=== PATIENT | female | born 1995 | race Two or more races ===

== ENCOUNTER 2017-01-19 22:33 | Emergency (ER) | payer SELFPAY ==
[~2017-01-19] VITALS: Ht 167.6 cm; Wt 54.4 kg
[2017-01-19 23:15] LABS: BILIRUBIN,URINE NEGATIVE (NEG); GLUCOSE,URINE NEGATIVE (NEG); NITRITE,URINE NEGATIVE (NEG); PH,URINE 5.5; PROTEIN,URINE NEGATIVE (NEG-TRACE); UROBILINOGEN,URINE 0.2 mg/dL (0.2 mg/dL)
--- NOTE | 2017-01-19 23:15 | PHYS DOC ---
Past Medical History Past Medical History: Other Additional Past Medical Histor: Gastritis Past Surgical History: No Surgical History Alcohol Use: None Drug Use: None Adult General Chief Complaint Chief Complaint: GI PROBLEM HPI HPI Patient is a 21 year old female who presents with mild epigastric abdominal pain that began today at 5 PM. Patient is also complaining of nausea with no vomiting. Denies any fever. Denies any chance she is . Denies any unusual vaginal discharge. Denies any concerns for STDs. Review of Systems Review of Systems Constitutional: Denies fever or chills [] Eyes: Denies change in visual acuity, redness, or eye pain [] HENT: Denies nasal congestion or sore throat [] Respiratory: Denies cough or shortness of breath [] Cardiovascular: No additional information not addressed in HPI [] GI: epigastric abdominal pain, nausea, denies vomiting, bloody stools or diarrhea [] : Denies dysuria or hematuria [] Musculoskeletal: Denies back pain or joint pain [] Integument: Denies rash or skin lesions [] Neurologic: Denies headache, focal weakness or sensory changes [] Endocrine: Denies polyuria or polydipsia [] Current Medications Current Medications Current Medications Medications (Trade) Dose Ordered Sig/Linda Start Time Stop Time Status Last Admin Dose Admin Famotidine (Pepcid) 20 mg 1X ONCE 01/19/17 23:30 01/19/17 23:31 DC 01/19/17 23:43 20 MG Multi-Ingredient Mouthwash/Gargle (Gi Cocktail Single Dose) 15 ml 1X ONCE 01/19/17 23:30 01/19/17 23:31 DC 01/19/17 23:44 15 ML Ondansetron HCl (Zofran Odt) 4 mg 1X ONCE 01/19/17 23:30 01/19/17 23:31 DC 01/19/17 23:44 4 MG Allergies Allergies Allergies Coded Allergies Type Severity Reaction Last Updated Verified No Known Drug Allergies 01/19/17 No Physical Exam Physical Exam Constitutional: Well developed, well nourished, no acute distress, non-toxic appearance. [] HENT: Normocephalic, atraumatic, bilateral external ears normal, oropharynx moist, no oral exudates, nose normal. [] Eyes: PERRLA, EOMI, conjunctiva normal, no discharge. [] Neck: Normal range of motion, no tenderness, supple, no stridor. [] Cardiovascular:Heart rate regular rhythm, no murmur [] Lungs & Thorax: Bilateral breath sounds clear to auscultation [] Abdomen: mild epigastric tenderness on exam. Bowel sounds normal, soft, no RUQ or RLQ tenderness, no masses, no pulsatile masses. [] Skin: Warm, dry, no erythema, no rash. [] Back: No tenderness, no CVA tenderness. [] Extremities: No tenderness, no cyanosis, no clubbing, ROM intact, no edema. [] Neurologic: Alert and oriented X 3, normal motor function, normal sensory function, no focal deficits noted. [] Psychologic: Affect normal, judgement normal, mood normal. [] Current Patient Data Vital Signs Vital Signs Date Time Temp Pulse Resp B/P (MAP) Pulse Ox O2 Delivery O2 Flow Rate FiO2 01/19/17 23:35 64 16 95/51 (66) 97 Room Air 01/19/17 22:40 98.3 98.3 Lab Values Laboratory Tests Test 01/19/17 22:44 01/19/17 22:48 01/19/17 23:30 Urine Collection Type Unknown Urine Color Yellow Urine Clarity Clear Urine pH 5.5 Urine Specific [place] 1.025 Urine Protein Negative mg/dL (NEG-TRACE) Urine Glucose (UA) Negative mg/dL (NEG) Urine Ketones (Stick) Negative mg/dL (NEG) Urine Blood Negative (NEG) Urine Nitrite Negative (NEG) Urine Bilirubin Negative (NEG) Urine Urobilinogen Dipstick 0.2 mg/dL (0.2 mg/dL) Urine Leukocyte Esterase Trace (NEG) Urine RBC Occ /HPF (0-2) Urine WBC 5-10 /HPF (0-4) Urine Squamous Epithelial Cells Few /LPF Urine Bacteria Few /HPF (0-FEW) Urine Mucus Marked /LPF POC Urine HCG, Qualitative Hcg negative (Negative) White Blood Count 9.0 x10^3/uL (4.0-11.0) Red Blood Count 4.53 x10^6/uL (3.50-5.40) Hemoglobin 13.0 g/dL (12.0-15.5) Hematocrit 39.1 % (36.0-47.0) Mean Corpuscular Volume 86 fL (79-100) Mean Corpuscular Hemoglobin 29 pg (25-35) Mean Corpuscular Hemoglobin Concent 33 g/dL (31-37) Red Cell Distribution Width 13.4 % (11.5-14.5) Platelet Count 139 x10^3/uL (140-400) L Neutrophils (%) (Auto) 65 % (31-73) Lymphocytes (%) (Auto) 25 % (24-48) Monocytes (%) (Auto) 8 % (0-9) Eosinophils (%) (Auto) 1 % (0-3) Basophils (%) (Auto) 0 % (0-3) Neutrophils # (Auto) 5.9 x10^3uL (1.8-7.7) Lymphocytes # (Auto) 2.3 x10^3/uL (1.0-4.8) Monocytes # (Auto) 0.7 x10^3/uL (0.0-1.1) Eosinophils # (Auto) 0.1 x10^3/uL (0.0-0.7) Basophils # (Auto) 0.0 x10^3/uL (0.0-0.2) Sodium Level 139 mmol/L (136-145) Potassium Level 3.6 mmol/L (3.5-5.1) Chloride Level 104 mmol/L (98-107) Carbon Dioxide Level 24 mmol/L (21-32) Anion Gap 11 (6-14) Blood Urea Nitrogen 14 mg/dL (7-20) Creatinine 0.5 mg/dL (0.6-1.0) L Estimated GFR (Cockcroft-Gault) 157.3 BUN/Creatinine Ratio 28 (6-20) H Glucose Level 106 mg/dL (70-99) H Calcium Level 8.9 mg/dL (8.5-10.1) Total Bilirubin 0.6 mg/dL (0.2-1.0) Aspartate Amino Transferase (AST) 18 U/L (15-37) Alanine Aminotransferase (ALT) 16 U/L (14-59) Alkaline Phosphatase 57 U/L (46-116) Total Protein 6.9 g/dL (6.4-8.2) Albumin 4.0 g/dL (3.4-5.0) Albumin/Globulin Ratio 1.4 (1.0-1.7) Lipase 153 U/L (73-393) Laboratory Tests 01/19/17 23:30 Laboratory Tests 01/19/17 23:30 EKG EKG [] Radiology/Procedures Radiology/Procedures [] Course & Med Decision Making Course & Med Decision Making Pertinent Labs and Imaging studies reviewed. (See chart for details) This is a 21-year-old female patient presenting to the ED today with epigastric abdominal pain that began a couple hours prior to coming to the ED. Negative urine hCG, urine analysis is negative for infection, CBC CMP lipase with no acute findings, abdominal ultrasound was negative for any acute findings. Patient was given GI cocktail and famotidine with very good relief. I highly suspect acid reflex. She will be discharged with Zantac. Follow-up with PCP in 1 -2 weeks or the supervisor adult education provided. She is provided return precautions and discharged in stable condition. Dragon Disclaimer Dragon Disclaimer This electronic medical record was generated, in whole or in part, using a voice recognition dictation system. Departure Departure Impression: Primary Impression: Epigastric pain Additional Impression: GERD (gastroesophageal reflux disease) Disposition: 01 HOME, SELF-CARE Condition: STABLE Referrals: NO PCP (PCP) ESTRELLITA OROZCO MD follow up in one week Patient Instructions: Abdominal Pain, Diet for Gastroesophageal Reflux Disease , Adult, Gastroesophageal Reflux Disease, Adult Additional Instructions: You were seen with abdominal pain. We highly suspect you have acid reflex. Consider taking an anti-acid every day. You can also take Tums. Follow-up with your doctor in 1-2 weeks or the provided doctor. Come back to the emergency room if symptoms worsen. Scripts Ranitidine Hcl (ZANTAC) 150 Mg Tablet 1 TAB PO BID, #60 TAB 3 Refills Prov: ADRIANO WILSON APRN 01/20/17 Problem Qualifiers Additional Impression: GERD (gastroesophageal reflux disease) Esophagitis presence: esophagitis presence not specified Qualified Codes: K21.9 - Gastro-esophageal reflux disease without esophagitis ADRIANO WILSON APRN Jan 19, 2017 23:15
[2017-01-19] MEDS ORDERED: FAMOTIDINE 20 MG TABLET. PO ONE (23:30)
[2017-01-19] MEDS ORDERED: LIDO:MAALOX:DONNATAL 1:1:1 15 ML SINGLE DOSE SWSW ONE (23:30)
[2017-01-19] MEDS ORDERED: ONDANSETRON ODT 4 MG TAB.RAPDIS. PO ONE (23:30)
[2017-01-19 23:31] LABS: RBC,URINE OCC /HPF (0-2)
[2017-01-19 23:32] LABS: BACTERIA,URINE FEW /HPF (0-FEW); SQUAMOUS EPITHELIAL CELL,UR FEW /LPF
[2017-01-19 23:47] LABS: BASO % 0 % (0-3); EOS % 1 % (0-3); HEMATOCRIT 39.1 % (36.0-47.0); LYMPH # 2.3 x10^3/uL (1.0-4.8); LYMPH % 25 % (24-48); MEAN CORPUSCULAR HEMOGLOBIN 29 pg (25-35); MEAN CORPUSCULAR HGB CONC 33 g/dL (31-37); MEAN CORPUSCULAR VOLUME 86 fL (79-100); MONO % 8 % (0-9); NEUT % 65 % (31-73); PLATELET COUNT 139 x10^3/uL (140-400); RED BLOOD COUNT 4.53 x10^6/uL (3.50-5.40); RED CELL DISTRIBUTION WIDTH 13.4 % (11.5-14.5)
[2017-01-19 23:58] LABS: CALCIUM 8.9 mg/dL (8.5-10.1); CREATININE 0.5 mg/dL (0.6-1.0); GFR 157.3; POTASSIUM 3.6 mmol/L (3.5-5.1)
[2017-01-20 00:04] LABS: ALBUMIN/GLOBULIN RATIO 1.4 (1.0-1.7); TOTAL BILIRUBIN 0.6 mg/dL (0.2-1.0); TOTAL PROTEIN 6.9 g/dL (6.4-8.2)
--- NOTE | 2017-01-20 00:27 | RAD ---
Abdominal ultrasound complete: Reason for examination: Abdominal pain for one day. No abnormality seen at the pancreas. The abdominal aorta is normal in caliber at 1.4 cm in greatest dimension with no aneurysmal dilatation or dissection evident. No abnormality seen at the inferior vena cava. The liver is normal in size at 15.6 cm and shows no homogeneous echogenicity without a focal lesion. Gallbladder shows no cholelithiasis, sludge or wall thickening. Common bile duct is normal in caliber at 1.5 mm. The spleen is homogeneous and normal in size at 9.6 cm in greatest dimension. Right kidney measures 11.8 x 5.9 x 4.9 cm in greatest dimension and shows good vascular flow with no masses or hydronephrosis. The left kidney measures 11.1 x 4.9 x 4.2 cm in greatest dimension and shows shows good vascular flow with no mass or hydronephrosis. No free fluid is evident. IMPRESSION: No focal abnormality evident in the abdomen. Electronically signed by: Rebecca Jung MD (01/20/2017 12:24 AM) [facility]
[2017-01-20 00:30] VITALS: BP 101/63
[2017-01-20] MEDS ORDERED: RANI150T6 PO (00:36)
== END 2017-01-20 00:51 | disposition home or self-care (01) ==
LOC: ER 23:08
DX: K21.9 Gastro-esophageal reflux disease without esophagitis (principal)
CPT/HCPCS: 36415; 76700; 80053; 81001; 81025; 83690; 85025; 99285; Q0162

== ENCOUNTER → 2020-09-12 | Outpatient (CLI) | payer SELFPAY ==
[~2020-09-12] MED LIST: DICY20TA3 PO; OMEP20CA16 PO; OXYC1TAB15 PO; RANI-376 PO
== END ==
LOC: LAB 10:09
PROVIDERS: ATTEND Surgery
DX: Z01.812 Encounter for preprocedural laboratory examination (principal); K80.20 Calculus of gallbladder without cholecystitis without obstruction; Z20.822 Contact with and (suspected) exposure to COVID-19
CPT/HCPCS: U0003; U0005

== ENCOUNTER → 2020-09-14 | Day surgery (SDC) | payer SELFPAY ==
[~2020-09-14] VITALS: Ht 165.1 cm; Wt 63.0 kg
[~2020-09-14] MED LIST changes: +BUPIVACAINE MPF 0.5% 30 ML VIAL. ONE; +DEXAMETHASONE SOD PHOS 4 MG/ML VIAL ONE; +GLYCOPYRROLATE 1 MG/5 ML VIAL. ONE; +HYDROmorphone 2 MG/ML VIAL ONE; +IOHEXOL 300 MG/ML 50 ML VIAL. ONE; +IV RINGERS,LACTATED 1000ML 1,000 ML IV SCH; +KETOROLAC 30 MG/ML VIAL. ONE; +LIDOCAINE 2% PF 5 ML VIAL. ONE; +MIDAZOLAM HCL/PF 2 MG/2 ML VIAL. ONE; +MORPHINE SULFATE 2 MG/ML VIAL. ONE; +NEOSTIGMINE METHYLSULFATE 5 MG/5 ML SYRINGE. ONE; +ONDANSETRON PF 4 MG/2 ML VIAL. ONE; +PHENYLEPHRINE in 0.9% NACL PF 1 MG/10 ML SYRINGE. IV ONE; +PROCHLORPERAZINE 10 MG/2 ML VIAL. IVP PRN; +PROCHLORPERAZINE 10 MG/2 ML VIAL. ONE; +PROPOFOL 10 MG/ML (20ML) VIAL. IV ONE; +SEVOFLURANE 61 TO 120 MINUTES. IH ONE; +SURGICEL HEMOSTAT 4X8 EACH. ONE; +ceFAZolin SODIUM IV Push 1 GM VIAL. IVP PRN; +fentaNYL PF VIAL 100 MCG/2 ML VIAL IVP PRN; +fentaNYL PF VIAL 100 MCG/2 ML VIAL ONE
--- NOTE | 2020-09-14 08:29 | RAD ---
EXAM: INTRAOPERATIVE CHOLANGIOGRAM. HISTORY: Gallbladder disease. Intraoperative cholangiogram with cholecystectomy. COMPARISON: None. FINDINGS: 3 fluoroscopic images are obtained intraoperatively during injection of the cystic duct rem nant after cholecystectomy. There are no filling defects to suggest retained stones. The common duct is not dilated. Fluoroscopy time 0.24 minutes. IMPRESSION: 1. No evidence of retained stones. Electronically signed by: Jason Wu MD (09/14/2020 8:27 AM) [facility]
--- NOTE | 2020-09-14 08:51 | PDOC4 ---
Operative Note Operative Note Operative Note: Preoperative Diagnosis: Symptomatic cholelithiasis Postoperative Diagnosis: Same Procedure: Laparoscopic cholecystectomy with intraoperative cholangiogram Surgeons: [employer] Attendant: BERTHA Mcbride Anesthesia: Gen. Estimated Blood Loss: 10 mL Specimen: Gallbladder to pathology Drains: None Complications: None Indications: The patient is a 25-year-old female who is referred with symptomatic cholelithiasis.. Surgical treatment was offered by means of a laparoscopic cholecystectomy. The risks of surgery were discussed which include bleeding, infection, bile duct injury, bile leak, pain, the potential for additional surgeries or procedures. The patient understands and would like to proceed. Description: The patient was taken to the operating room and laid supine on the operating table. General anesthesia was performed. The abdomen was prepped with ChloraPrep and draped in a standard surgical fashion. A small infraumbilical incision was made with a scalpel. The Veress needle was then inserted and a pneumoperitoneum was then created. A 5 mm trocar was then inserted and the laparoscope was introduced. In the upper midabdomen a 5 mm trocar was inserted and in the right upper quadrant two 2.3 mm mini lap graspers were inserted. The gallbladder was retracted cephalad. The cystic duct was dissected free from surrounding tissues. One clip was placed on the duct near the gallbladder junction. An opening was made in the duct and a cholangiocatheter placed within and secured with a clip. Using contrast dye and fluoroscopy an intraoperative cholangiogram was performed that appeared unremarkable. The clip and catheter were then withdrawn. Three clips were pl aced on the cystic duct and it was divided. The cystic artery was then identified, dissected free, doubly clipped and divided as well. The gallbladder was then mobilized away from the liver with cautery. The umbilical 5 millimeter trocar was exchanged for an 11 millimeter trocar. The gallbladder was then placed in an endoscopic bag and extracted at the umbilical trocar site. The fascia there was closed with an 0 Vicryl suture and infiltrated with 0.5% marcaine. All blood and irrigation fluid was suctioned and hemostasis was good. The remaining ports were removed and the pneumoperitoneum was relieved. The skin incisions were closed using 4-0 Monocryl suture. Steri-Strips and dressings were then applied. The patient tolerated the procedure well and was sent to the recovery room in stable condition. At the end of the case all counts were correct. ESTRELLITA MAGANA MD September 14, 2020 08:51
--- NOTE | 2020-09-14 08:52 | DISCH ---
DISCHARGE INSTRUCTIONS Condition on Discharge Condition on Discharge: Stable Activity After Discharge Activity Instructions for Disc: Other, see below (No lifting over 20 lbs X 2 weeks) Diet after Discharge Diet after Discharge: Regular Wound Incision Care Wound/Incision Care: Other, see below (may remove bandaids tomorrow and shower, steristrips fall off on their own) Follow-Up Follow up with: Dr Magana in 2 weeks in office, call for appointment ESTRELLITA MAGANA MD September 14, 2020 08:52
[2020-09-14] MEDS: MORPHINE SULFATE 2 MG/ML VIAL. IVP PRN ×2 (09:23→09:36)
[2020-09-14] MEDS: HYDROmorphone 2 MG/ML VIAL IVP PRN ×3 (09:48→10:38)
[2020-09-14 10:07] VITALS: BP 100/43
--- NOTE | 2020-09-20 15:17 | PATHOLOGY ---
[facility] Accession Number: [id number] . 01 Material submitted: . gallbladder - GALLBLADDER . 01 Clinical history: . GALL STONES SYMPTOMATIC CHOLELITHIASIS LAP JOANNA W/ GRAMS . 02 Diagnosis: Gallbladder, laparoscopic cholecystectomy: - Cholelithiasis. - Cholesterolosis. - Chronic cholecystitis. . ([facility]:mm; 09/20/2020) [facility] 09/20/2020 1327 Local . 02 Comment: There is no evidence of malignancy. . ([facility]:mm; 09/20/2020) . 02 Electronically signed: . Júnior Delatorre MD, Pathologist NPI- [id number] . 01 Gross description: . Fixative: Formalin Labeled: Gallbladder Specimen received: Intact Dimensions: 7.4 x 2.4 x 2.2 cm Serosa: Smooth, escobar pink and glistening with a roughened hepatic bed Lymph node: No Mucosa: Velvety, brown-green with escobar yellow stippling Average wall thickness: 0.5 cm Calculi: A yellow green calculus measuring 1.1 x 1.0 x 0.9 cm Abnormalities: None A1- Consulting Marine [employer] body, fundus, and the cystic duct margin(inked black). ([facility]; 09/16/2020) . GZA/GZA 09/16/2020 1004 Local . 02 Pathologist provided ICD-10: K80.10, K82.4 . 02 CPT . 223099 Specimen Comment: A courtesy copy of this report has been sent to [phone] Specimen Comment: Report sent to Performed at: [address], [place], [place] [id number] MD Jae Peraza MD Phone: [phone] Performed at: [address] [id number] MD Júnior Delatorre MD Phone: [phone]
== END | disposition home or self-care (01) ==
LOC: SURG 06:19
PROVIDERS: ATTEND Surgery
DX: K80.10 Calculus of gallbladder with chronic cholecystitis without obstruction (principal); Z79.899 Other long term (current) drug therapy; Z98.890 Other specified postprocedural states
CPT/HCPCS: 47563; 74300; 81025; 88304; A4213; A4314; A4364; A4930; A6219; C1887; J0690; J0780; J1100; J1170; J1885; J2250; J2270; J2370; J2405; J2704; J2710; J3010; J3490; Q9967; A4452; A4657